=== PATIENT | male | born 1995 | race Caucasian/White ===

== ENCOUNTER 2021-11-08 16:40 | Emergency (ER) | payer BC ==
[~2021-11-08] VITALS: Ht 165.1 cm; Wt 77.1 kg
--- NOTE | 2021-11-08 17:42 | NUR ---
"I have swelling in both testes xcouple of days". PT AAOX4, VSS. RR EVEN & UNLABORED. DENIES CP, SOB, DIZZINESS, N/V AT THIS TIME. WILL CONT TO MONITOR.
[2021-11-08] MEDS ORDERED: CEFTRIAXONE 1 G VIAL IM ONE (19:30)
[2021-11-08] MEDS ORDERED: LIDOCAINE /MPF 1% VIAL 5 ML VIAL ONE (19:48)
[2021-11-08] MEDS ORDERED: CEFTRIAXONE 1 G VIAL ONE (19:49)
[2021-11-08 20:01] LABS: BILIRUBIN,URINE NEGATIVE (NEGATIVE); COLOR,URINE YELLOW (YELLOW); LEUKOCYTE ESTERASE ,URINE NEGATIVE (NEGATIVE); NITRITE, URINE NEGATIVE (NEGATIVE); PH,URINE 5.5 (5.0-8.0); PROTEIN,URINE NEGATIVE (NEGATIVE); UGLUCOSE NEGATIVE (NEGATIVE)
[2021-11-08] MEDS ORDERED: DOXY-326 PO (20:24)
[2021-11-08 20:28] LABS: BACTERIA,URINE None seen /HPF (None Seen); MUCUS,URINE Few /LPF (None Seen); RBC,URINE 0-2 /HPF (0-2); WBC,URINE 0-2 /HPF (0-3)
--- NOTE | 2021-11-08 21:14 | NUR ---
Patient discharged to home in stable condition. Written and verbal after care instructions given. Patient verbalizes understanding of instruction.
[2021-11-08 21:24] VITALS: BP 105/61
== END 2021-11-08 21:15 | disposition home or self-care (01) ==
LOC: ER 16:40
DX: N50.89 Other specified disorders of the male genital organs (principal); Z79.899 Other long term (current) drug therapy
CPT/HCPCS: 76870; 81001; 87086; 87491; 87591; 96372; 99284; J0696; J3490